=== PATIENT | female | born 1965 | race Hispanic/Latino ===

== ENCOUNTER 2017-07-07 14:31 | Emergency (ER) | payer SELFPAY ==
[~2017-07-07 14:31] MED LIST: ASPI-973 PO; ATEN100T PO; CIPR-231 PO
[2017-07-07 14:35] VITALS: BP 172/105; PULSE 89; RESP 16; O2SAT 99
--- NOTE | 2017-07-07 16:35 | ED.REPORT ---
HPI-Headache Date of Service Jul 07, 2017 ED Provider: Jeronimo Prather MD Pt is a 51 year old female with a history of HTN who presents to the ED complaining of headache onset 1.5 weeks ago. She c/o associated nausea and dizziness that are exacerbated with movement. She denies fever, chest-symptoms, infection symptoms, numbness in her extremities, and paresthesia in her extremities. The pt reports that her ear has felt "plugged" for the past week. Per pt, she hit her head 1x 3 months ago, but she has not experience chronic headaches since then. She states that she has occasional headache and intermittent bilateral paresthesia in her cheeks. She denies a history of DM. Nursing Notes Stated Complaint: HEADACHE, NAUSEA, DIZZINESS Chief Complaint: Headache Nursing Notes Reviewed: Yes Allergies: Coded Allergies: codeine (Verified Allergy, Unknown, 06/29/15) Scheduled Aspirin (Aspirin) 81 Mg Tablet 81 MG PO DAILY Atenolol (Atenolol) 100 Mg Tablet 100 MG PO DAILY Ciprofloxacin (Cipro) 500 Mg Tablet 500 MG PO BID General Time Seen by MD: 16:33 Chief Complaint Headache Hx Obtained From: Patient Arrived By: Walk-in Sudden in Onset?: No Onset Occurred: 1 week ago Symptom Duration: Since onset Location: : Generalized Quality: Painful Radiation: : Does not radiate Severity: Current: Moderate Severity: Maximum: Moderate Recent Healthcare: No recent doctor visit, No recent hospitalization Similar Sx Previous: No Past Medical History Past Medical History Reports: Hypertension, Denies: Diabetes mellitus Past Surgical History Reports: Tubal ligation Smoking History Current Every Day Smoker Social History Alcohol Use: "Social" Drug Use: Denies drug use Other Social History: Good social support Ambulatory Status Independent Review of Systems Denies paresthesia in extremities + paresthesia in cheeks bilaterally Constitutional: Denies: Fever GI: Reports: Nausea Neurologic: Reports: Dizziness, Headache, Denies: Numbness Complete sys rev & neg: except as marked. Respiratory: Denies: Non-productive cough, Shortness of breath Cardiovascular: Denies: Chest pain, Dyspnea on exertion, Palpitations Allergy / Immune: Denies: Rhinorrhea, Sneezing Physical Exam Initial Vital Signs Vital Signs (First) Date Time Temp Pulse Resp B/P Pulse Ox O2 Delivery O2 Flow Rate FiO2 07/07/17 14:35 37.1 89 16 172/105 99 Room Air Initial VS: Reviewed Respiratory: Breath sounds normal, Clear to auscultation, No respiratory distress Cardiovascular: Regular rate & rhythm, Heart sounds normal, Intact distal pulses Abdomen / GI: Soft, Non-tender Extremities: Vascular intact, Neuro intact Skin: Warm, Dry, No cyanosis Psychiatric: Mood/affect normal, Behavior normal General/Constitutional: Awake, Alert Head / Eyes: Atraumatic, Normocephalic, PERRL, EOMI Neck: Atraumatic, Supple, Full range of motion Neurologic: Oriented X3, Speech NL, No motor deficits, No sensory deficits, CN II - XII intact Re-Eval/Medical Decision Source of Hx: Old records Counseled Regarding: Diagnosis, Need for follow-up, When/why to return to ED Discharge & Departure Departure Notes When the nurse went in the room to administer the medications I ordered the patient had left the building without notifying staff. She left without any discharge instructions. I had no inclination that it was her intention to leave when I left the room after interviewing her and examining her. Impression: Primary Impression: Migraine Disposition: AGAINST MEDICAL ADVICE Discharge Condition All VS Reviewed: Yes Condition: Stable Referrals: [facility] (PCP) Scribe Attestation Portions of this note were transcribed by Lakeisha Allen. I, Dr. Prather personally performed the history, physical exam and medical decision-making; I reviewed and confirmed the accuracy of the information in the transcribed note. Signed by: Alexander Scott, 07/07/17. copies to: [facility] Jeronimo Prather MD Jul 07, 2017 16:35 Lakeisha Piper Jul 07, 2017 16:42
[2017-07-07] MEDS ORDERED: 0.9% Sodium Chloride 1,000 ML IV ONE (16:42)
[2017-07-07] MEDS ORDERED: Dexamethasone 10 mg/mL Inj IVPUSH ONE (16:45)
[2017-07-07] MEDS ORDERED: MetoCLOpramide 5 mg/mL 2 mL Inj IVPUSH ONE (16:45)
== END 2017-07-07 17:07 | disposition left against medical advice (07) ==
LOC: SED 14:31
DX: G43.909 Migraine, unspecified, not intractable, without status migrainosus (principal); I10 Essential (primary) hypertension; F17.200 Nicotine dependence, unspecified, uncomplicated; Z79.82 Long term (current) use of aspirin; Z88.5 Allergy status to narcotic agent